=== PATIENT | female | born 1940 | race Caucasian/White ===

== ENCOUNTER 2016-08-17 12:04 | Emergency (ER) | payer MEDICARE, BC ==
[2016-08-17 12:34] VITALS: RESP 18
--- NOTE | 2016-08-17 13:06 | ED ---
General Adult HPI - General Chief complaint: Recheck/Abnormal Lab/Rx Stated complaint: Low Pulse Rate Time Seen by Provider: 08/17/16 12:30 Source: patient, RN notes reviewed Mode of arrival: wheelchair Limitations: no limitations - History of Present Illness Initial comments: Patient is a pleasant 76-year-old female presenting to the emergency department with lightheadedness and nausea. Symptoms now resolved. Symptoms were worse this morning especially with upright position. Patient saw her doctor and was started on Lopressor 25 twice a day as well as eliquis 2 days ago. Patient took her medications around 7:30. Patient had symptoms following this and checked her blood pressure at 10:30 and again at 11. Blood pressure was approximately 90/60 both times. Patient also took a heart rate of 33 and 40. Patient does feel symptom-free at this time while lying in bed. - Related Data Home Medications Medication Instructions Recorded Confirmed Apixaban [Eliquis] 5 mg PO BID 08/17/16 08/17/16 Aspirin EC [Ecotrin Low Dose] 81 mg PO DAILY 08/17/16 08/17/16 Ciprofloxacin HCl [Cipro] 500 mg PO Q12HR 08/17/16 08/17/16 Losartan-Hctz 50-12.5 mg [Hyzaar 1 tab PO DAILY 08/17/16 08/17/16 50-12.5] Metoprolol Tartrate [Lopressor] 25 mg PO BID 08/17/16 08/17/16 Vit C/E/Zn/Coppr/Lutein/Zeaxan 1 cap PO BID 08/17/16 08/17/16 [Preservision Areds 2 Softgel] Allergies Allergy/AdvReac Type Severity Reaction Status Date / Time Penicillins Allergy Itching Verified 08/17/16 13:33 Review of Systems ROS Statement: Those systems with pertinent positive or pertinent negative responses have been documented in the HPI. ROS Other: All systems not noted in ROS Statement are negative. Constitutional: Denies: fever Eyes: Denies: eye pain ENT: Denies: ear pain Respiratory: Denies: cough Cardiovascular: Denies: chest pain Endocrine: Denies: fatigue Gastrointestinal: Reports: nausea. Denies: abdominal pain Genitourinary: Denies: urgency Musculoskeletal: Denies: back pain Skin: Denies: rash Neurological: Denies: headache, weakness, confusion Past Medical History Past Medical History: Atrial Fibrillation, Hypertension History of Any Multi-Drug Resistant Organisms: None Reported Past Surgical History: Appendectomy, Section, Hysterectomy Past Psychological History: No Psychological Hx Reported Smoking Status: Never smoker Past Alcohol Use History: None Reported Past Drug Use History: None Reported General Exam Limitations: no limitations General appearance: alert, in no apparent distress Head exam: Present: atraumatic Eye exam: Present: normal appearance, PERRL ENT exam: Present: normal oropharynx Neck exam: Present: normal inspection Respiratory exam: Present: normal lung sounds bilaterally Cardiovascular Exam: Present: irregular rhythm GI/Abdominal exam: Present: soft. Absent: tenderness Extremities exam: Present: normal inspection Neurological exam: Present: alert, CN II-XII intact. Absent: motor sensory deficit Psychiatric exam: Present: normal affect, normal mood Skin exam: Present: normal color Course Vital Signs 08/17/16 08/17/16 08/17/16 12:06 12:32 13:22 Temperature 98.0 F Pulse Rate 134 H 108 H Pulse Rate [ 118 H Right Sitting] Pulse Rate [ 127 H Right Standing] Pulse Rate [ 133 H Right Supine] Respiratory 20 18 18 Rate Blood Pressure 159/84 167/62 Blood Pressure 115/63 [Right Arm Sitting] Blood Pressure 110/68 [Right Arm Standing] Blood Pressure 109/71 [Right Arm Supine] O2 Sat by Pulse 99 97 99 Oximetry EKG Findings - EKG Comments: EKG Findings:: A. fib with a rate of 101. QRS 86. QT 350. QTC 453. Left axis. Normal QRS. No acute ST change. Medical Decision Making - Medical Decision Making Patient reevaluated and resting comfortably in bed. Patient remained symptom- free. Case was also discussed with Dr. mendoza who is comfortable with discharge. He also questions the accuracy of her heart rate prior to arrival. He does recommend switching Hyzaar dose to afternoon. This was explained to the patient. She does demonstrate understanding. Patient is also advised of concern for renal function and need for follow-up. Patient states she does have a history of renal disease and used to be on dialysis years ago. Heart rate is 100. Blood pressure 110/68. - Lab Data Result diagrams: 08/17/16 12:31 08/17/16 12:31 Lab Results 08/17/16 08/17/16 08/17/16 Range/Units 12:31 12:31 12:31 WBC 6.8 (3.8-10.6) k/uL RBC 4.77 (3.80-5.40) m/uL Hgb 13.4 (11.4-16.0) gm/dL Hct 41.2 (34.0-46.0) % MCV 86.3 (80.0-100.0) fL MCH 28.1 (25.0-35.0) pg MCHC 32.6 (31.0-37.0) g/dL RDW 13.1 (11.5-15.5) % Plt Count 113 L (150-450) k/uL Neutrophils % 67 % Lymphocytes % 22 % Monocytes % 5 % Eosinophils % 3 % Basophils % 1 % Neutrophils # 4.5 (1.3-7.7) k/uL Lymphocytes # 1.5 (1.0-4.8) k/uL Monocytes # 0.3 (0-1.0) k/uL Eosinophils # 0.2 (0-0.7) k/uL Basophils # 0.1 (0-0.2) k/uL PT (9.0-12.0) sec INR (<1.1) APTT (22.0-30.0) sec Sodium 140 (137-145) mmol/L Potassium 4.2 (3.5-5.1) mmol/L Chloride 102 (98-107) mmol/L Carbon Dioxide 25 (22-30) mmol/L Anion Gap 13 mmol/L BUN 42 H (7-17) mg/dL Creatinine 1.80 H (0.52-1.04) mg/dL Est GFR (MDRD) Af Amer 33 (>60 ml/min/1.73 sqM) Est GFR (MDRD) Non-Af 27 (>60 ml/min/1.73 sqM) Glucose 85 (74-99) mg/dL Calcium 9.3 (8.4-10.2) mg/dL Magnesium 1.6 (1.6-2.3) mg/dL Total Bilirubin 0.6 (0.2-1.3) mg/dL AST 21 (14-36) U/L ALT 31 (9-52) U/L Alkaline Phosphatase 92 (38-126) U/L Total Creatine Kinase 52 (30-135) U/L CK-MB (CK-2) 1.7 (0.0-2.4) ng/mL CK-MB (CK-2) Rel Index 3.3 Troponin I <0.012 (0.000-0.034) ng/mL Total Protein 6.6 (6.3-8.2) g/dL Albumin 4.1 (3.5-5.0) g/dL TSH 1.760 (0.465-4.680) mIU/L Free T4 1.20 (0.78-2.19) ng/dL Free T3 pg/mL 3.5 (2.8-5.3) pg/ml 08/17/16 Range/Units 12:31 WBC (3.8-10.6) k/uL RBC (3.80-5.40) m/uL Hgb (11.4-16.0) gm/dL Hct (34.0-46.0) % MCV (80.0-100.0) fL MCH (25.0-35.0) pg MCHC (31.0-37.0) g/dL RDW (11.5-15.5) % Plt Count (150-450) k/uL Neutrophils % % Lymphocytes % % Monocytes % % Eosinophils % % Basophils % % Neutrophils # (1.3-7.7) k/uL Lymphocytes # (1.0-4.8) k/uL Monocytes # (0-1.0) k/uL Eosinophils # (0-0.7) k/uL Basophils # (0-0.2) k/uL PT 10.5 (9.0-12.0) sec INR 1.0 (<1.1) APTT 23.7 (22.0-30.0) sec Sodium (137-145) mmol/L Potassium (3.5-5.1) mmol/L Chloride (98-107) mmol/L Carbon Dioxide (22-30) mmol/L Anion Gap mmol/L BUN (7-17) mg/dL Creatinine (0.52-1.04) mg/dL Est GFR (MDRD) Af Amer (>60 ml/min/1.73 sqM) Est GFR (MDRD) Non-Af (>60 ml/min/1.73 sqM) Glucose (74-99) mg/dL Calcium (8.4-10.2) mg/dL Magnesium (1.6-2.3) mg/dL Total Bilirubin (0.2-1.3) mg/dL AST (14-36) U/L ALT (9-52) U/L Alkaline Phosphatase (38-126) U/L Total Creatine Kinase (30-135) U/L CK-MB (CK-2) (0.0-2.4) ng/mL CK-MB (CK-2) Rel Index Troponin I (0.000-0.034) ng/mL Total Protein (6.3-8.2) g/dL Albumin (3.5-5.0) g/dL TSH (0.465-4.680) mIU/L Free T4 (0.78-2.19) ng/dL Free T3 pg/mL (2.8-5.3) pg/ml - Radiology Data Radiology results: image reviewed (Chest x-ray shows mild cardiomegaly.Cardiac density likely related to small hiatal hernia.) Disposition Clinical Impression: Lightheadedness Disposition: HOME SELF-CARE Condition: Stable Instructions: Lightheadedness (ED) Additional Instructions: 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 Please change your Hyzaar dose to the afternoon. Have your doctor's recheck your renal function. Return for decreased heart rate, decreased blood pressure, lightheadedness, weakness or confusion, worsening symptoms or other concerns. Referrals: Kathy Marroquin MD [Primary Care Provider] - 1-2 days Time of Disposition: 14:08
[2016-08-17 13:21] LABS: Basophils # (A) 0.1 k/uL (0-0.2); Basophils % (A) 1 %; CH 28.3; Eosinophils # (A) 0.2 k/uL (0-0.7); Eosinophils % (A) 3 %; HCT 41.2 % (34.0-46.0); HDW 2.59; HGB 13.4 gm/dL (11.4-16.0); Luc # (Auto) 0.15; Luc % (Auto) 2; Lymphocytes # (A) 1.5 k/uL (1.0-4.8); Lymphocytes % (A) 22 %; MCH 28.1 pg (25.0-35.0); MCHC 32.6 g/dL (31.0-37.0); MCV 86.3 fL (80.0-100.0); Mean Platelet Volume 8.8; Monocytes # (A) 0.3 k/uL (0-1.0); Monocytes % (A) 5 %; Neutrophils # (A) 4.5 k/uL (1.3-7.7); Neutrophils % (A) 67 %; RBC 4.77 m/uL (3.80-5.40); RDW 13.1 % (11.5-15.5); WBC 6.8 k/uL (3.8-10.6); WBC (Perox) 6.76
[2016-08-17 13:31] LABS: Calcium 9.3 mg/dL (8.4-10.2); Magnesium 1.6 mg/dL (1.6-2.3); Partial Thromboplastin Time 23.7 sec (22.0-30.0); Potassium 4.2 mmol/L (3.5-5.1); Prothrombin Time 10.5 sec (9.0-12.0); Total Bilirubin 0.6 mg/dL (0.2-1.3); Total Protein 6.6 g/dL (6.3-8.2)
--- NOTE | 2016-08-17 13:33 | XR ---
EXAMINATION TYPE: XR chest 2V DATE OF EXAM: 08/17/2016 COMPARISON: NONE TECHNIQUE: PA and lateral views submitted. HISTORY: Shortness of breath FINDINGS: The lungs are clear and there is no pneumothorax, pleural effusion, or focal pneumonia. Heart size prominent there suggestion of a hiatal hernia. Hypertrophic degenerative change of the spine. Arthrop athy of the shoulders. IMPRESSION: 1. Mild cardiomegaly. Retrocardiac density likely related to small hiatal hernia.
[2016-08-17 13:44] LABS: Creatine Kinase 52 U/L (30-135)
[2016-08-17 13:57] LABS: Creatine Kinase MB 1.7 ng/mL (0.0-2.4); Troponin I <0.012 ng/mL (0.000-0.034)
[2016-08-17] MEDS ORDERED: SODIUM CHLORIDE 0.9% 500 ML IV STA (14:00)
[2016-08-17 14:43] VITALS: TEMP 97.5
[2016-08-17 15:09] VITALS: BP 112/76; PULSE 112
== END 2016-08-17 15:07 | disposition home or self-care (01) ==
LOC: EC 12:04
DX: R42 Dizziness and giddiness (principal); I48.91 Unspecified atrial fibrillation; I11.9 Hypertensive heart disease without heart failure; Z88.0 Allergy status to penicillin; Z79.01 Long term (current) use of anticoagulants; Z79.82 Long term (current) use of aspirin; Z79.899 Other long term (current) drug therapy
CPT/HCPCS: 36415; 71020; 80053; 82550; 82553; 83735; 84439; 84443; 84481; 84484; 85025; 85610; 85730; 93005; 96360; 99284

== ENCOUNTER 2016-11-07 05:57 | Day surgery (SDC) | payer MEDICARE, BC ==
[2016-11-07] MEDS ORDERED: ALPRAZolam 0.25 MG TAB PO PRN (06:16)
[2016-11-07] MEDS ORDERED: ASPIRIN 325 MG TAB PO STA (06:16)
[2016-11-07] MEDS ORDERED: ALPRAZolam 0.5 MG TAB PO PRN (06:16)
[2016-11-07] MEDS ORDERED: ATORVASTATIN 80 MG TAB PO STA (06:16)
[2016-11-07] MEDS ORDERED: SODIUM CHLORIDE 0.9% 1,000 ML in EMPTY BAG 1 BAG IV ONE (06:16)
[2016-11-07] MEDS ORDERED: NITROGLYCERIN SL TABS 0.4 MG TAB SUBLINGUAL PRN (06:16)
[2016-11-07 07:04] VITALS: TEMP 98
[2016-11-07 07:29] LABS: Potassium 4.6 mmol/L (3.5-5.1)
[2016-11-07] MEDS ORDERED: MIDAZOLAM 2 MG/2 ML VIAL IV ONE (07:38)
[2016-11-07] MEDS ORDERED: LIDOCAINE 2% INJ 20 MG/ML SQ ONE (07:42)
[2016-11-07] MEDS ORDERED: IODIXANOL 320 MG/ML 100 ML INTRAARTER ONE (07:53)
[2016-11-07] MEDS ORDERED: SODIUM CHLORIDE 0.9% 1,000 ML IV SCH (08:00)
[2016-11-07] MEDS ORDERED: APIXABAN 5 MG TAB PO SCH (09:00)
[2016-11-07] MEDS ORDERED: METOPROLOL TARTRATE 25 MG TAB PO SCH (09:00)
[2016-11-07] MEDS ORDERED: NON-FORMULARY DRUG (Vit C/E/Zn/Coppr/Lutein/Zeaxan [Preservision Areds 2 Softgel] 1 CAP) PO SCH (09:00)
[2016-11-07] MEDS ORDERED: NON-FORMULARY DRUG (Aspirin Ec 81 MG) PO SCH (09:00)
[2016-11-07 09:03] VITALS: RESP 18
[2016-11-07 16:30] VITALS: BP 126/91; PULSE 107
--- NOTE | 2016-11-08 07:42 | LTR ---
Date: DATE OF SERVICE: 11/07/2016 RE: Nilsa Melchor Dear Dr. Marroquin, Thank you for allowing me to participate in the care of Mrs Melchor. I am please to report to you that she does not have any significant CAD that required intervention. She is back in atrial fibrillation and we will therefore pursue rate control and anticoagulation. I expect she will be discharged later on today. Thank you for the referral and please call for questions. With kindest regards. Sincerely yours, Moses Rodriguez. JOCELIN / BRITTANI: [id number] /
--- NOTE | 2016-11-08 07:42 | CC ---
CARDIAC CATHETERIZATION REPORT DATE OF PROCEDURE: 11/07/2016. PROCEDURE: Left heart catheterization and coronary angiography. Performed by Dr. Tima Bray. Moderate conscious sedation was provided for a total duration of 20 minutes. CLINICAL INFORMATION: Mrs. Melchor is a 76-year-old lady with a history of hypertension, persistent atrial fibrillation, status post cardioversion which was successful but today she is in atrial fib, controlled rate. She also had abnormal stress test and chest discomfort. Was advised cardiac cath after due discussion. Risks, benefits, options, rationale were explained. PROCEDURE NOTE: Under local anesthesia and strict aseptic precautions, a 6-Citizen [place] introducer was placed in the right femoral artery. Using standard Heena catheters, I performed coronary angiography and a pigtail catheter was used to check LV pressure. LV-gram was not performed. Patient's creatinine was elevated. She was well-hydrated and I gave her only 55 mL of dye. CARDIAC CATHETERIZATION FINDINGS: The left ventricular end-diastolic pressure was 16 to 17 mmHg without any gradient across the aortic valve. CORONARY ANGIOGRAPHY FINDINGS: RIGHT CORONARY ARTERY: Nondominant vessel. Minor irregularities. No significant disease. Supplies a limited amount of myocardium. LEFT MAIN CORONARY ARTERY: Short patent disease-free vessel that bifurcates into LAD and circumflex. LEFT ANTERIOR DESCENDING CORONARY ARTERY: Good caliber vessel. Extends along the antral wall and gives off a high diagonal branch. Minor irregular minor in the LAD. Gives off several septal and diagonal branches. Distally it curves over the apex and supplies the inferoapical portion. No significant disease in the LAD which is a large caliber, large distribution vessel. Diagonal, which is a high diagonal, is also free of significant disease with no more than 30% to 35% narrowing. LEFT POSTERIOR CIRCUMFLEX CORONARY ARTERY: Technically a dominant vessel, gives off 2 obtuse marginals and distally bifurcates into a PDA and PLV. PLV is larger, PDA is smaller, has minor irregularities. Overall, no significant disease in the dominant circumflex. LEFT VENTRICULOGRAM: This was not performed. FINAL IMPRESSION: This patient has an acceptable filling pressures, left dominant system, minor irregularities, no significant disease. RECOMMENDATIONS: Findings were discussed at length with the patient and her family members, including her sister. I am recommending that we continue medications with beta fernando for rate control at 50 mg b.i.d. of Lopressor. We will continue Eliquis, which will be resumed tomorrow. Same medications will be given and I will see her in the office on Friday. She will be discharged later on today, if she remains stable. Right femoral access was addressed by an Angio-Seal successfully. JOCELIN / NAYEN: [id number] /
== END 2016-11-07 16:10 | disposition home or self-care (01) ==
LOC: CATHCVL 05:57
PROVIDERS: ATTEND Internal Medicine Interventional Cardiology
DX: I25.110 Atherosclerotic heart disease of native coronary artery with unstable angina pectoris (principal); R94.39 Abnormal result of other cardiovascular function study; I48.1 Persistent atrial fibrillation; I10 Essential (primary) hypertension; Z79.01 Long term (current) use of anticoagulants; Z79.82 Long term (current) use of aspirin; Z79.899 Other long term (current) drug therapy; Z88.0 Allergy status to penicillin
CPT/HCPCS: 93458; 80048; 99152; 99153; C1760; C1894; C1769 ×2; J2001; J2250; Q9967

== ENCOUNTER → 2017-11-10 | Outpatient (CLI) | payer MEDICARE, BC ==
--- NOTE | 2017-11-10 17:09 | CT ---
EXAMINATION TYPE: CT abdomen w con DATE OF EXAM: 11/10/2017 COMPARISON: None HISTORY: Right upper quadrant and right flank pain. CT DLP: 694.7 mGycm Automated exposure control for dose reduction was used. TECHNIQUE: Helical acquisition of images was performed from the lung bases through the top of iliac crest to include entire abdomen. CONTRAST: Performed with Oral Contrast and with IV Contrast, patient injected with 50 mL of Isovue M300. FINDINGS: Lung bases are clear. There is no pleural effusion. There is no pericardial effusion. There is modera te hiatal hernia. Liver and spleen appear normal. There are calcified gallstones. Bile ducts are not dilated. There is no evidence of pancreatic mass. Spleen appears normal. New graft there is no adrenal mass. There is c ortical thinning of the left kidney. There is 2 cm cortical cyst upper pole left kidney. There is no hydronephrosis. Ureters are not dilated. I see no intestinal wall thickening. There are no dilated lo ops. I see no bony destructive process. There are spondylotic changes in the lumbar spine. IMPRESSION: LARGE CALCIFIED GALLSTONES. NO DILATED DUCTS. HIATAL HERNIA. LEFT RENAL ATROPHY.
== END | disposition home or self-care (01) ==
LOC: RADCTMAIN 16:09
PROVIDERS: ATTEND Family Medicine
DX: K80.20 Calculus of gallbladder without cholecystitis without obstruction (principal); K44.9 Diaphragmatic hernia without obstruction or gangrene; N26.1 Atrophy of kidney (terminal)
CPT/HCPCS: 82565; 84520; 74160; 36415; Q9967

== ENCOUNTER → 2022-10-15 | Outpatient (CLI) | payer MEDICARE, BC ==
[2022-10-15 14:53] LABS: Basophils # (A) 0.05 X 10*3/uL (0.00-0.10); Eosinophils # (A) 0.17 X 10*3/uL (0.04-0.35); Eosinophils % (A) 3.4 %; HCT 37.9 % (37.2-46.3); HGB 11.9 d/dL (12.0-15.0); Lymphocytes % (A) 31.9 %; MCH 28.2 pg (27.0-32.0); MCHC 31.4 d/dL (32.0-37.0); MCV 89.8 FL (80.0-97.0); Mean Platelet Volume 11.7 FL (9.5-12.2); Monocytes # (A) 0.51 X 10*3/uL (0.20-1.00); Monocytes % (A) 10.2 %; NRBC Per 100 WBC 0 X 10*3/uL (0.00-0.01); Neutrophils # (A) 2.68 X 10*3/uL (1.80-7.70); Neutrophils % (A) 53.3 %; Platelet Count 108 X 10*3/uL (140-440); RBC 4.22 X 10*6/uL (4.10-5.20); RDW 13.2 % (11.5-14.5); WBC 5.02 X 10*3/uL (4.50-10.00)
[2022-10-15 15:20] LABS: ALT 20 U/L (8-44); AST 25 U/L (13-35); Albumin 4.1 d/dL (3.8-4.9); Albumin/Globulin Ratio 2.41 Ratio (1.60-3.17); Alkaline Phosphatase 85 U/L (41-126); BUN/Creat Ratio 14.18 Ratio (12.00-20.00); Blood Urea Nitrogen 24.1 mg/dL (9.0-27.0); Calcium 9.7 mg/dL (8.7-10.3); Carbon Dioxide 27.8 mmol/L (21.6-31.8); Chloride 106 mmol/L (96-109); Chol/HDL Ratio 3.54 Ratio; Globulin 1.7 d/dL (1.6-3.3); Glucose 108 mg/dL (70-110); LDL Cholesterol,Calculated 125.9 mg/dL (0.0-131.0); Potassium 5.4 mmol/L (3.5-5.5); Sodium 142 mmol/L (135-145); Total Bilirubin 0.8 mg/dL (0.3-1.2); Total Protein 5.8 d/dL (6.2-8.2)
== END | disposition home or self-care (01) ==
LOC: LABWHC1 09:08
PROVIDERS: ATTEND Internal Medicine
DX: Z00.01 Encounter for general adult medical examination with abnormal findings (principal); Z13.220 Encounter for screening for lipoid disorders; E55.9 Vitamin D deficiency, unspecified; R53.83 Other fatigue
CPT/HCPCS: 36415; 80053; 80061; 82306; 84443; 85025

== ENCOUNTER → 2022-11-11 | Outpatient (CLI) | payer MEDICARE, BC ==
[2022-11-11 16:38] LABS: Magnesium 1.8 mg/dL (1.5-2.4); Phosphorus 3.1 mg/dL (2.4-5.1)
[2022-11-12 20:06] LABS: Total Protein 24 Hour,Urine 79.4 mg/24Hr (0.0-165.0); Total Volume 24 Hour,Urine 1150 mL
== END | disposition home or self-care (01) ==
LOC: LABWHC1 11:11
PROVIDERS: ATTEND Internal Medicine
DX: N18.4 Chronic kidney disease, stage 4 (severe) (principal)
CPT/HCPCS: 36415; 81050; 83735; 84100; 84156

== ENCOUNTER → 2022-12-26 | Outpatient (CLI) | payer MEDICARE, BC ==
--- NOTE | 2022-12-26 13:06 | US ---
EXAMINATION TYPE: US kidneys/renal and bladder DATE OF EXAM: 12/26/2022 COMPARISON: 11/10/2017 CLINICAL INDICATION: Female, 82 years old with history of N18.4 CHRONIC KIDNEY DISEASE, STAGE 4 ([facility] RE); CKD stage 4 EXAM MEASUREMENTS: Right Kidney: 10.8x4.5x4.0 cm Left Kidney: 8.1x3.4x4.6 cm Right Kidney: cortical thinning Left Kidney: atrophic appearance, superior pole cyst 3.3x3.2x3.0cm Bladder: wnl, poorly distended Bilateral Jets seen: unable to assess due to flash artifact from overlying bowel There is no evidence for hydronephrosis at this point in time. No nephrolithiasis is seen. No lisa s are identified. The urinary bladder is anechoic. Bilateral ureteral jets are seen. exam slightly limited by bowel and body habitus IMPRESSION: 1. Cortical medullary differentiation maintained. 2. No evidence for obstructive uropathy. 3. Left renal simple appearing cyst.
== END | disposition home or self-care (01) ==
LOC: RADUSWWP 12:07
PROVIDERS: ATTEND Internal Medicine
DX: N18.4 Chronic kidney disease, stage 4 (severe) (principal)
CPT/HCPCS: 76770